=== PATIENT | male | born 1980 | race African-American/Black ===

== ENCOUNTER 2017-01-28 07:53 | Emergency (ER) | payer OTHER ==
[~2017-01-28] VITALS: Ht 162.6 cm; Wt 63.5 kg
[2017-01-28] MEDS ORDERED: COUMADIN 5 MG TA5 M1 PO (07:57)
[2017-01-28] MEDS ORDERED: ASPIR 8181 MG PO (07:57)
[2017-01-28 11:09] LABS: HEMATOCRIT 40.6 % (42.0-52.0); HEMOGLOBIN 14.6 gm/dL (14.0-18.0); MCH 31.4 pg (26.0-34.0); MCHC 35.9 g/dL (28.0-37.0); MCV 87.4 fL (80.0-100.0); PLATELET COUNT 192 thou/uL (150-400); RBC 4.64 mil/uL (4.50-6.00); RDW 12.9 % (10.5-14.5); WBC 4.6 thou/uL (4.0-11.0)
[2017-01-28 11:11] LABS: MANUAL DIFF YES
[2017-01-28 11:17] LABS: APTT 30.4 Seconds (24.5-32.8); PROTIME 10.8 Seconds (9.3-11.4)
[2017-01-28 11:20] LABS: ALBUMIN 4.5 g/dL (3.4-5.0); CALCIUM 9.6 mg/dL (8.5-10.1); CREATININE 0.8 mg/dL (0.7-1.3); DIRECT BILIRUBIN 0.1 mg/dL (<0.1-0.3); POTASSIUM 4.3 mmol/L (3.5-5.1); TOTAL BILIRUBIN 0.6 mg/dL (<0.1-1.0); TOTAL PROTEIN 8.1 g/dL (6.4-8.2)
[2017-01-28 11:40] LABS: ABSOLUTE NEUTROPHILS 2.2 thou/uL (1.4-8.2); PLATELET ESTIMATE NORMAL; TOTAL CELL COUNT 100
[2017-01-28] MEDS ORDERED: PRILOSEC 20 MG20 MG PO (12:02)
[2017-01-28] MEDS ORDERED: LOVENOX60 MG/0.6 SQ (12:11)
[2017-01-28 12:24] VITALS: BP 120/69
== END 2017-01-28 12:25 | disposition home or self-care (01) ==
LOC: ER 07:53
PROVIDERS: Emergency Medicine
DX: R10.12 Left upper quadrant pain (principal); R79.1 Abnormal coagulation profile; Z88.6 Allergy status to analgesic agent; Z91.013 Allergy to seafood

== ENCOUNTER 2017-05-10 06:58 | Emergency (ER) | payer OTHER ==
[~2017-05-10] VITALS: Ht 162.6 cm; Wt 65.3 kg
[~2017-05-10 06:58] MED LIST: ASPIR 8181 MG PO; COUMADIN 5 MG TA5 M1 PO; LOVENOX60 MG/0.6 SQ; PRILOSEC 20 MG20 MG PO
[2017-05-10] MEDS ORDERED: AMOXICILLIN 50500 M1 PO (08:51)
[2017-05-10 09:20] VITALS: BP 123/71
== END 2017-05-10 09:21 | disposition home or self-care (01) ==
LOC: ER 06:58
DX: J02.0 Streptococcal pharyngitis (principal); F10.99 Alcohol use, unspecified with unspecified alcohol-induced disorder

== ENCOUNTER 2017-06-10 19:19 | Emergency (ER) | payer OTHER ==
[~2017-06-10] VITALS: Ht 162.6 cm; Wt 65.8 kg
--- NOTE | ~2017-06-10 | EKG ---
[facility] [place] [address] ELECTROCARDIOGRAM REPORT Name: DARBY BACA [id number] Admission: 06/10/17 Attend Phys: Discharge: Date of : 76 Report #: [id number] THIS REPORT FOR: //name// [facility] ED Test Date: 2017-06-10 Test Time: 19:44:02 Pat Name: DARBY BACA Department: Room: Gender: Supervisor Dock: [place] : 1980 Requested By: Dario Santana Order Number: [id number] MD: Tima Lopez Measurements Intervals [place] Rate: 96 P: 4 OK: 155 QRS: -48 QRSD: 146 T: 92 QT: 383 QTc: 484 Interpretive Statements Sinus rhythm LAE, consider biatrial enlargement RIGHT BUNDLE BRANCH BLOCK LAFB Electronically Signed On 06-10-2017 23:33:59 CDT by Tima Lopez [email or web address] <ELECTRONICALLY SIGNED> By: Tima Lopez MD 06/10/17 2333 [id number] 43 Tima Lopez MD /GANESH
[~2017-06-10 19:19] MED LIST changes: +AMOXICILLIN 50500 M1 PO
[2017-06-10] MEDS ORDERED: AMOXICILLIN 50500 MG PO (19:30)
[2017-06-10 20:12] LABS: HEMATOCRIT 35.7 % (42.0-52.0); HEMOGLOBIN 12.7 gm/dL (14.0-18.0); MCH 30.1 pg (26.0-34.0); MCHC 35.5 g/dL (28.0-37.0); MCV 84.7 fL (80.0-100.0); PLATELET COUNT 227 thou/uL (150-400); RBC 4.22 mil/uL (4.50-6.00); RDW 13.3 % (10.5-14.5); WBC 11.5 thou/uL (4.0-11.0)
[2017-06-10 20:13] LABS: MANUAL DIFF YES
[2017-06-10 20:25] LABS: ANION GAP 8 mmol/L (7-16); BUN 9 mg/dL (7-18); CALCIUM 9.3 mg/dL (8.5-10.1); CHLORIDE 104 mmol/L (98-107); CO2 26 mmol/L (21-32); GLUCOSE 110 mg/dL (74-106); POTASSIUM 3.2 mmol/L (3.5-5.1); SODIUM 138 mmol/L (136-145)
[2017-06-10 20:34] LABS: ALBUMIN 3.8 g/dL (3.4-5.0); ALKALINE PHOSPHATASE 82 U/L (46-116); MAGNESIUM 1.9 mg/dL (1.8-2.4); SGOT 24 U/L (15-37); SGPT 25 U/L (30-65); TOTAL BILIRUBIN 0.3 mg/dL (<0.1-1.0); TOTAL PROTEIN 7.9 g/dL (6.4-8.2); TROPONIN-I < 0.04 ng/mL (<0.04-0.07)
[2017-06-10 20:58] LABS: ABSOLUTE NEUTROPHILS 8.7 thou/uL (1.4-8.2); ATYPICAL LYMPHS 5 %; TOTAL CELL COUNT 100
[2017-06-10 21:15] LABS: INR 1.5; PROTIME 15.3 Seconds (9.3-11.4)
[2017-06-10 22:10] LABS: URINE BLOOD 1+ (Negative); URINE COLOR YELLOW; URINE GLUCOSE-RANDOM* NEGATIVE (Negative); URINE KETONES TRACE (Negative); URINE LEUKOCYTES-REFLEX NEGATIVE (Negative); URINE PROTEIN (DIPSTICK) 1+ (Negative); URINE SPECIFIC GRAVITY >= 1.030 (1.003-1.035); URINE UROBILINOGEN 0.2 E.U./dl (0.2-1.0)
[2017-06-10 22:11] VITALS: BP 105/63
[2017-06-10 22:12] LABS: ICTOTEST (BILI CONFIRMATORY) Negative (Negative); URINE BILIRUBIN NEGATIVE (Negative)
[2017-06-10] MEDS ORDERED: IBUPROFEN 600600 M1 PO (22:19)
[2017-06-10 22:22] LABS: CASTS None Seen /LPF (None Seen); SQUAMOUS None Seen /LPF (0-3)
[2017-06-10 22:23] LABS: CRYSTALS None Seen /LPF (None Seen); URINE RBC 0-2 Rare /HPF (0-2); URINE WBC-REFLEX 0-5 Rare /HPF (0-5)
== END 2017-06-10 22:20 | disposition home or self-care (01) ==
LOC: ER 19:19
PROVIDERS: Emergency Medicine; Nurse Practitioner Family
DX: E87.6 Hypokalemia (principal); M79.1 Myalgia; J02.9 Acute pharyngitis, unspecified; Z79.82 Long term (current) use of aspirin; Z95.2 Presence of prosthetic heart valve

== ENCOUNTER 2017-09-01 07:38 | Emergency (ER) | payer OTHER ==
[~2017-09-01] VITALS: Ht 162.6 cm; Wt 68.0 kg
[~2017-09-01 07:38] MED LIST changes: +AMOXICILLIN 50500 MG PO; +IBUPROFEN 600600 M1 PO
[2017-09-01] MEDS ORDERED: AMOXICILLIN 50500 M1 PO (08:52)
[2017-09-01] MEDS ORDERED: ZOFRAN ODT4 MG PO (08:52)
== END 2017-09-01 09:04 | disposition home or self-care (01) ==
LOC: ER 07:38
DX: J11.1 Influenza due to unidentified influenza virus with other respiratory manifestations (principal); J02.9 Acute pharyngitis, unspecified

== ENCOUNTER 2018-02-21 20:39 | Emergency (ER) | payer OTHER ==
[~2018-02-21] VITALS: Ht 162.6 cm; Wt 67.1 kg
[~2018-02-21 20:39] MED LIST changes: +ZOFRAN ODT4 MG PO
[2018-02-21 21:28] LABS: PROTIME 10.3 Seconds (9.3-11.4)
[2018-02-21] MEDS ORDERED: COUMADIN 5 MG TA5 M1 PO (21:52)
[2018-02-21 21:58] VITALS: BP 123/78
== END 2018-02-21 22:06 | disposition home or self-care (01) ==
LOC: ER 20:39
PROVIDERS: Physician Assistant
DX: R79.1 Abnormal coagulation profile (principal); Z76.0 Encounter for issue of repeat prescription

== ENCOUNTER 2018-02-28 22:18 | Emergency (ER) | payer OTHER ==
[~2018-02-28] VITALS: Ht 162.6 cm; Wt 65.8 kg
[2018-02-28] MEDS ORDERED: PREDNISONE 20 M20 MG PO (22:46)
[2018-02-28] MEDS ORDERED: TRIAMCINOLONE A80 G2 TOP (22:50)
[2018-02-28 22:58] VITALS: BP 110/63
== END 2018-02-28 23:00 | disposition home or self-care (01) ==
LOC: ER 22:18
DX: L23.7 Allergic contact dermatitis due to plants, except food (principal)

== ENCOUNTER 2018-11-08 18:59 | Emergency (ER) | payer OTHER ==
[~2018-11-08] VITALS: Ht 165.1 cm; Wt 72.6 kg
[~2018-11-08 18:59] MED LIST changes: +PREDNISONE 20 M20 MG PO; +TRIAMCINOLONE A80 G2 TOP
[2018-11-08 21:41] LABS: PROTIME 10.5 Seconds (9.3-11.4)
[2018-11-08] MEDS ORDERED: ENOXAPARIN40 MG/0.1 SUBQ (22:13)
[2018-11-08] MEDS ORDERED: COUMADIN 10MG T10 M1 PO (22:13)
[2018-11-08] MEDS ORDERED: PENICILLIN VK500 M1 PO (22:15)
[2018-11-08 22:23] VITALS: BP 145/98
== END 2018-11-08 22:24 | disposition home or self-care (01) ==
LOC: ER 18:59
PROVIDERS: Emergency Medicine
DX: K08.89 Other specified disorders of teeth and supporting structures (principal); Z76.0 Encounter for issue of repeat prescription; Z91.14 Patient's other noncompliance with medication regimen; R79.1 Abnormal coagulation profile